=== PATIENT | female | born 1965 | race Caucasian/White ===

== ENCOUNTER → 2020-06-22 | Day surgery (SDC) | payer OTHER ==
[~2020-06-22] MED LIST: ACETAMINOPHEN500 M1 PO; ALENDRONATE SOD70 MG PO; ASCORBIC ACID500 MG PO; CALCIUM500 MG PO; LIPITOR20 MG PO; LOVAZA1 GM PO; PRESERVISION A1 EAC2 PO; ZYRTEC10 M3 PO
== END | disposition home or self-care (01) ==
LOC: FAS 10:45
DX: K64.8 Other hemorrhoids (principal); E78.00 Pure hypercholesterolemia, unspecified; M81.0 Age-related osteoporosis without current pathological fracture; J30.2 Other seasonal allergic rhinitis; Z20.822 Contact with and (suspected) exposure to COVID-19; Z98.51 Tubal ligation status; Z82.49 Family history of ischemic heart disease and other diseases of the circulatory system
CPT/HCPCS: J2250; J2704; J7120

== ENCOUNTER 2021-05-02 14:01 | Emergency (ER) | payer OTHER ==
[2021-05-02 14:40] LABS: BILIRUBIN NEGATIVE (NEGATIVE); BLOOD 2+ Ery/uL (NEGATIVE); CLARITY CLEAR (CLEAR); COLOR YELLOW (YELLOW); GLUCOSE (U) NORMAL (NORMAL); LEUKOCYTES NEGATIVE Leu/uL (NEGATIVE); NITRITE NEGATIVE (NEGATIVE); PROTEIN NEGATIVE (NEGATIVE); UROBILINOGEN 0.2 mg/dL (0.2-1.0)
[2021-05-02 15:02] LABS: BASOPHIL 0.6 % (0-2); EOSINOPHIL 1.6 % (0-5); HCT 42.7 % (37.0-47.0); HGB 14.2 g/dl (12.5-16.0); LYMPHOCYTE 27.5 % (15-48); MCH 29.7 pg (25.0-31.0); MCHC 33.3 g/dL (32.0-36.0); MCV 89.3 fL (78.0-100.0); MONOCYTE 5.6 % (0-12); MPV 11.1 fL (6.0-9.5); NEUTROPHIL 64.4 % (41-80); NRBC 0; PLT 190 K/uL (150-400); RBC 4.78 M/uL (4.20-5.40); RDW 13.2 % (11.5-14.0); WBC 6.3 K/uL (4.0-10.5)
[2021-05-02 15:27] LABS: ALBUMIN 4.2 g/dL (3.4-5.0); BILIRUBIN - TOTAL 0.4 mg/dL (0.2-1.0); BUN/CREAT RATIO (CALC) 28.6 RATIO; CREATININE 0.84 mg/dL (0.51-0.95); POTASSIUM 3.9 mmol/L (3.5-5.1); TOTAL PROTEIN 7.2 g/dL (6.4-8.2)
[2021-05-02 15:45] LABS: BACTERIA 1+; URINARY WBC RARE
[2021-05-02] MEDS ORDERED: ONDANSETRON HCL4 MG PO (17:59)
[2021-05-02] MEDS ORDERED: NORCO 5-325 TA1 EACH PO (17:59)
[2021-05-02] MEDS ORDERED: FLOMAX 0.4 MG0.4 MG PO (17:59)
== END 2021-05-02 18:32 | disposition home or self-care (01) ==
LOC: FER 14:01
PROVIDERS: Nurse Practitioner Family
DX: N13.2 Hydronephrosis with renal and ureteral calculous obstruction (principal); Z87.442 Personal history of urinary calculi
CPT/HCPCS: 36415; 80053; 81001; 85025; J1885; J2405; J7030; Q9967

== ENCOUNTER 2021-06-08 03:37 | Emergency (ER) | payer OTHER ==
[~2021-06-08 03:37] MED LIST changes: +FLOMAX 0.4 MG0.4 MG PO; +NORCO 5-325 TA1 EACH PO; +ONDANSETRON HCL4 MG PO
[2021-06-08 04:21] LABS: BASOPHIL 0.6 % (0-2); EOSINOPHIL 2.5 % (0-5); HCT 40.5 % (37.0-47.0); HGB 13.5 g/dl (12.5-16.0); MCH 29.9 pg (25.0-31.0); MCHC 33.3 g/dL (32.0-36.0); MCV 89.6 fL (78.0-100.0); MONOCYTE 7.4 % (0-12); MPV 11.6 fL (6.0-9.5); NEUTROPHIL 45.3 % (41-80); NRBC 0; PLT 166 K/uL (150-400); RBC 4.52 M/uL (4.20-5.40); RDW 13.1 % (11.5-14.0); WBC 6.4 K/uL (4.0-10.5)
[2021-06-08 04:43] LABS: ALBUMIN 4.2 g/dL (3.4-5.0); BILIRUBIN - TOTAL 0.3 mg/dL (0.2-1.0); BUN/CREAT RATIO (CALC) 38.1 RATIO; CREATININE 0.63 mg/dL (0.51-0.95); GLOBULIN (CALCULATION) 2.8 g/dL; POTASSIUM 3.6 mmol/L (3.5-5.1)
[2021-06-08 04:58] LABS: BILIRUBIN NEGATIVE (NEGATIVE); BLOOD NEGATIVE Ery/uL (NEGATIVE); CLARITY CLEAR (CLEAR); COLOR YELLOW (YELLOW); GLUCOSE (U) NORMAL (NORMAL); LEUKOCYTES TRACE Leu/uL (NEGATIVE); NITRITE NEGATIVE (NEGATIVE); PROTEIN NEGATIVE (NEGATIVE); UROBILINOGEN 0.2 mg/dL (0.2-1.0)
[2021-06-08 05:03] LABS: AMORPHOUS URATES CRYSTALS MODERATE; BACTERIA 1+; URINARY WBC RARE
== END 2021-06-08 08:45 | disposition home or self-care (01) ==
LOC: FER 03:37
PROVIDERS: Internal Medicine
DX: R10.11 Right upper quadrant pain (principal); R07.81 Pleurodynia; Z28.311 Partially vaccinated for COVID-19
CPT/HCPCS: 36415; 71250; 80053; 81001; 83690; 83735; 84145; 84484; 85025; 93005

== ENCOUNTER → 2021-08-12 | Day surgery (SDC) | payer OTHER ==
[~2021-08-12] VITALS: Ht 165.1 cm; Wt 76.2 kg
[~2021-08-12] MED LIST changes: +DICLOFENAC SODI75 MG PO; +NEXIUM20 MG PO; +SINGULAIR10 MG PO; +[UNRECOGNIZED DRUG - OTHER] PO
[2021-08-12 11:53] LABS: ALBUMIN 3.7 g/dL (3.4-5.0); BILIRUBIN - TOTAL 0.5 mg/dL (0.2-1.0); BUN/CREAT RATIO (CALC) 43.8 RATIO; CREATININE 0.64 mg/dL (0.51-0.95); GLOBULIN (CALCULATION) 2.8 g/dL; POTASSIUM 3.8 mmol/L (3.5-5.1); TOTAL PROTEIN 6.5 g/dL (6.4-8.2)
== END | disposition home or self-care (01) ==
LOC: FAS 09:30
PROVIDERS: Surgery
DX: K29.50 Unspecified chronic gastritis without bleeding (principal); K25.9 Gastric ulcer, unspecified as acute or chronic, without hemorrhage or perforation; K31.9 Disease of stomach and duodenum, unspecified; R07.81 Pleurodynia; E78.00 Pure hypercholesterolemia, unspecified; K21.9 Gastro-esophageal reflux disease without esophagitis; Z80.0 Family history of malignant neoplasm of digestive organs; Z79.899 Other long term (current) drug therapy
CPT/HCPCS: 36415; 80053; J2704; J7120